=== PATIENT | female | born 1965 | race Caucasian/White ===

== ENCOUNTER → 2020-12-03 12:56 | Outpatient (CLI) | payer BC, SELFPAY ==
[2020-12-03 22:26] LABS: COVID19 - ORCAS (NP or Nasal) Negative (Negative)
== END ==
PROVIDERS: PCP Physician Assistant Medical; Visit Provider Physician Assistant Medical
DX: Z20.822 Contact with and (suspected) exposure to COVID-19 (principal)
CPT/HCPCS: U0003

== ENCOUNTER → 2022-03-18 08:46 | Outpatient (CLI) | payer BC, SELFPAY ==
[2022-03-18 20:41] LABS: Add Manual Diff / Slide Review NO; Basophils Absolute Auto 100 /uL (0-100); Basophils Percent Auto 1.4 % (0-2); Eosinophils Absolute Auto 200 /uL (0-450); Eosinophils Percent Auto 2.8 % (2-4); Hemoglobin 13.3 g/dL (12.0-16.0); Lymphocytes Absolute Auto 1500 /uL (1100-4500); Lymphocytes Percent Auto 25.9 % (25-40); Mean Corpuscular HGB Conc 33.1 % (30-36); Mean Corpuscular Hemoglobin 29.9 PG (26-34); Mean Corpuscular Volume 90.2 fL (80-100); Monocytes Absolute Auto 400 /uL (0-900); Monocytes Percent Auto 7.8 % (3-14); Neutrophils Absolute Auto 3500 /uL (1500-7000); Neutrophils Percent Auto 62.1 % (50-75); Platelet Count 287 X10^3/uL (150-400); Red Blood Cell Count 4.44 X10^6/uL (4.0-5.2); Red Cell Distribution Width 13.3 % (11.6-14.8); White Blood Cell Count 5.7 X10^3/uL (4.5-11.0)
[2022-03-18 21:55] LABS: Alanine Aminotransferase 19 IU/L (<35); Albumin 4.3 g/dL (3.5-5.0); Albumin Globulin Ratio 1.5 (1.0-2.8); Alkaline Phosphatase 79 U/L (38-126); Aspartate Aminotransferase 31 IU/L (14-36); BUN Creatinine Ratio 27.4 (6-22); Bilirubin Total 0.4 mg/dL (0.2-1.3); Blood Urea Nitrogen 20 mg/dL (7-17); Calcium 9.1 mg/dL (8.4-10.2); Carbon Dioxide 25 mmol/L (22-32); Chloride 103 mmol/L (98-107); Estimated Glomerular Filt Rate > 60 mL/min (>60); Globulin 2.9 g/dL (1.7-4.1); Glucose 91 mg/dL (70-100); HEMOLYSIS 18 (0-50); Potassium 4.7 mmol/L (3.4-5.1); Sodium 138 mmol/L (137-145); Total Protein 7.2 g/dL (6.3-8.2)
[2022-03-19 06:03] LABS: Free T4, Direct Thyroxine 1.16 ng/dL (0.78-2.19)
[2022-03-19 06:17] LABS: TSH w/ Reflex to FT4 0.08 uIU/mL (0.47-4.68)
== END ==
PROVIDERS: PCP Physician Assistant; Visit Provider Physician Assistant
DX: K06.8 Other specified disorders of gingiva and edentulous alveolar ridge (principal)
CPT/HCPCS: 80053; 84439; 84443; 85025

== ENCOUNTER → 2023-08-11 19:13 | Outpatient (CLI) | payer BC, SELFPAY ==
--- NOTE | 2023-08-11 19:30 | DI.MRI.S_ITS ---
PROCEDURE: MR ANGIO NECK W CON INDICATIONS: severe headaches TECHNIQUE: Axial and sagittal TruFISP through the neck. Coronal dynamic MRA after the administration of contrast in the arterial and venous phases, with rotating 3-dimensional maximum intensity projection (MIP) reformats constructed from subtraction images. COMPARISON: [facility], MR, MR ANGIO HEAD WO CON, 08/11/2023, 19:29. FINDINGS: Image quality: Excellent. Carotid system: Great vessels demonstrate a conventional anatomy as they arise from the aortic arch. The origins of the common carotid arteries appear normal. The calibers and courses of the common carotid arteries are likewise normal. The carotid bifurcations appear normal bilaterally. The internal carotid arteries are widely patent up to the [place] of [place]. Posterior circulation: The origins of the vertebral arteries are unremarkable. The more superior portions of the vertebral arteries demonstrate normal course and caliber. Vertebral arteries join to form a normal appearing basilar artery. Miscellaneous: Subclavian arteries are patent throughout. Pre-contrast images through the neck demonstrate no soft tissue abnormalities. IMPRESSION: No areas of hemodynamically significant stenosis, vascular occlusion or aneurysmal dilation within the neck vasculature. Any quantitative measurements of stenosis were performed using NASCET criteria. Dictated by: Joan Alberts M.D. on 08/11/2023 at 21:09 Approved by: Joan Alberts M.D. on 08/11/2023 at 21:09
--- NOTE | 2023-08-11 20:00 | DI.MRI.S_ITS ---
PROCEDURE: MR ANGIO HEAD WO CON INDICATIONS: severe headaches for 2 months TECHNIQUE: Noncontrast axial 3-D jjwt-pn-vxywys MR angiogram, with 3-dimensional maximum intensity projection (MIP) reformats of the internal carotid arteries and posterior circulation then performed. COMPARISON: [facility], MR, MR ANGIO NECK W CON, 08/11/2023, 19:48. FINDINGS: Image quality: Excellent. Anterior circulation: Intracranial internal carotid arteries demonstrate normal size and intraluminal flow signal. The flow within the paired anterior cerebral arteries is normal and symmetric. The flow within the middle cerebral arteries is normal and symmetric. The anterior communicating artery is seen. No stenoses, occlusions, or aneurysms. Posterior circulation: Left vertebral artery dominance. Visualized portions of the vertebral arteries demonstrate normal caliber, and join to form a normal appearing basilar artery. The flow within the posterior cerebral arteries is normal and symmetric. No stenoses, occlusions, or aneurysms. IMPRESSION: No areas of hemodynamically significant stenosis, vascular occlusion or aneurysmal dilation within the anterior circulation. No areas of hemodynamically significant stenosis, vascular occlusion or aneurysmal dilation within the posterior circulation. Dictated by: Joan Alberts M.D. on 08/11/2023 at 21:07 Approved by: Joan Alberts M.D. on 08/11/2023 at 21:08
== END ==
PROVIDERS: PCP Family Medicine; Referring Provider Family Medicine; Visit Provider Family Medicine
DX: G44.82 Headache associated with sexual activity
CPT/HCPCS: 70544; 70548

== ENCOUNTER 2024-09-12 15:15 | Emergency (ER) | payer BC, SELFPAY ==
[2024-09-12] VITALS (11 sets, daily range): BP systolic 116–133; BP diastolic 67–74; PULSE 62–89; RESP 16–18; O2SAT 98–100; BMI 22.8
--- NOTE | 2024-09-12 15:30 | DI.CT.S_ITS ---
PROCEDURE: CT ANGIO HEAD AND NECK INDICATIONS: sudden onset blurry vision/ r/o CVA 0730am TECHNIQUE: After the administration of intravenous contrast, 1 mm thick sections acquired from the aortic arch through the [place] of [place]. 3-dimensional nylfwps-xjfccytlk-bqmbmybgec (MIP) and/or volume rendering reformats were acquired of the central intracranial vasculature and neck separately. For radiation dose reduction, the following was used: automated exposure control, adjustment of mA and/or kV according to patient size. COMPARISON: [facility], , MR ANGIO HEAD WO CON, 08/11/2023, 19:29. FINDINGS: Image quality: Diagnostic. BRAIN: CSF spaces: Ventricles are normal in size and shape. Basal cisterns are patent. No extra-axial fluid collections. Brain: No significant abnormality of the brain can be seen. Skull and face: Calvarium and facial bones appear intact, without suspicious lesions. Orbits appear normal. Sinuses: Sinuses and mastoids are clear. HEAD CT ANGIOGRAPHY: Anterior circulation: Intracranial internal carotid arteries are normal in size and flow. The flow within the paired anterior cerebral arteries is normal and symmetric. The flow within the middle cerebral arteries is normal and symmetric. The anterior communicating artery is seen. No aneurysms are seen. Posterior circulation: Visualized portions of the vertebral arteries demonstrate normal caliber, and join to form a normal appearing basilar artery. Flow within the posterior cerebral arteries is normal and symmetric. No aneurysms are seen. NECK CT ANGIOGRAPHY: Carotid system: The great vessels demonstrate a conventional anatomy as they arise from the aortic arch. The origins of the common carotid arteries appear patent. The common carotid arteries demonstrate normal caliber and courses. The bifurcation regions are both widely patent. The internal carotid arteries demonstrate normal calibers and courses. Posterior circulation: The origins of the vertebral arteries both appear widely patent. The more superior extracranial portions of both vertebral arteries also demonstrate normal courses and calibers. They join to form a normal appearing basilar artery. Soft tissues: Visualized neck soft tissues demonstrate no suspicious abnormalities. Bones: No suspicious bony lesions. Visualized cervical spine appears normally aligned. IMPRESSION: No significant intracranial arterial abnormality is seen. No significant abnormality is seen within the arteries of the neck. Any quantitative measurements of stenosis were performed using NASCET criteria. Dictated by: Indra Medrano M.D. on 09/12/2024 at 16:21 Approved by: Indra Medrano M.D. on 09/12/2024 at 16:26
--- NOTE | 2024-09-12 15:30 | DI.CT.S_ITS ---
PROCEDURE: CT HEAD/BRAIN WO CON INDICATIONS: sudden onset blurry vision/ r/o CVA 0730am TECHNIQUE: Noncontrast 4.5 mm thick angled axial sections acquired from the foramen magnum to the vertex, with coronal and sagittal reformats. For radiation dose reduction, the following was used: automated exposure control, adjustment of mA and/or kV according to patient size. COMPARISON: None. FINDINGS: Image quality: Diagnostic. CSF spaces: Basal cisterns are patent. No extra-axial fluid collections. Ventricles are normal in size and shape. Brain: No midline shift. No intracranial masses or hemorrhage. Golden-white matter interface is normal. Skull and face: Calvarium and visualized facial bones are intact, without suspicious lesions. Sinuses: Visualized sinuses and mastoids are clear. IMPRESSION: No acute intracranial pathology. Dictated by: Indra Medrano M.D. on 09/12/2024 at 16:17 Approved by: Indra Medrano M.D. on 09/12/2024 at 16:18
--- NOTE | 2024-09-12 17:03 | EKG_ITS ---
[address] [address] Test Date: 2024-09-12 Pat Name: Reshma Francois Department: 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
[2024-09-12 17:12] LABS: INR 1.1 (0.9-1.3); Prothrombin Time 12.2 SECONDS (9.4-12.5)
[2024-09-12 17:15] LABS: PTT Partial Thromboplastin Tim 32 SECONDS (25.1-36.5)
[2024-09-12 17:16] LABS: Add Manual Diff / Slide Review NO; Basophils Absolute Auto 100 /uL (0-100); Basophils Percent Auto 1.1 % (0-2); Eosinophils Absolute Auto 200 /uL (0-450); Eosinophils Percent Auto 2.3 % (2-4); Hemoglobin 13.3 g/dL (12.0-16.0); Lymphocytes Absolute Auto 2000 /uL (1100-4500); Lymphocytes Percent Auto 22.6 % (25-40); Mean Corpuscular HGB Conc 33.3 % (30-36); Mean Corpuscular Hemoglobin 30.1 PG (26-34); Mean Corpuscular Volume 90.5 fL (80-100); Monocytes Absolute Auto 500 /uL (0-900); Monocytes Percent Auto 5.5 % (3-14); Neutrophils Absolute Auto 5900 /uL (1500-7000); Neutrophils Percent Auto 68.5 % (50-75); Platelet Count 322 X10^3/uL (150-400); Red Blood Cell Count 4.42 X10^6/uL (4.0-5.2); Red Cell Distribution Width 13.5 % (11.6-14.8); White Blood Cell Count 8.7 X10^3/uL (4.5-11.0)
[2024-09-12 17:17] LABS: Alanine Aminotransferase 22 IU/L (<35); Albumin 4.6 g/dL (3.5-5.0); Albumin Globulin Ratio 1.4 (1.0-2.8); Alkaline Phosphatase 55 U/L (38-126); Aspartate Aminotransferase 33 IU/L (14-36); BUN Creatinine Ratio 18.6 (6-22); Bilirubin Total 0.3 mg/dL (0.2-1.3); Blood Urea Nitrogen 16 mg/dL (7-17); Calcium 9.1 mg/dL (8.4-10.2); Carbon Dioxide 27 mmol/L (22-32); Chloride 104 mmol/L (98-107); Creatine Kinase 89 U/L (30-135); Estimated Glomerular Filt Rate > 60 mL/min (>60); Globulin 3.2 g/dL (1.7-4.1); Glucose 160 mg/dL (70-100); HEMOLYSIS < 15 (0-50); Potassium 3.6 mmol/L (3.4-5.1); Sodium 137 mmol/L (137-145); Total Protein 7.8 g/dL (6.3-8.2)
[2024-09-12 17:28] LABS: Troponin I < 0.012 ng/mL (0.01-0.034)
--- NOTE | 2024-09-12 18:39 | ED.NEUROSD ---
HPI - Neuro Symptoms/Deficit General Chief Complaint: Neuro Symptoms/Deficit Stated Complaint: blurry/double vision, poss stroke Time Seen by Provider: 09/12/24 17:01 History of Present Illness HPI Narrative: 59-year-old female with history of hypothyroidism presents by private vehicle from home for visual disturbance this morning. Patient states that this morning around 730am she went about her normal routine. She was on the phone with her when she states that her vision ?split vertically in two. She estimates that this lasted 7-10 minutes. Has been asymptomatic since resolution of symptoms On Anticoagulants: No Related Data Home Medications Medication Instructions Recorded Confirmed multivitamin 1 tab PO DAILY 06/11/21 11/03/23 levothyroxine 112 mcg tablet 112 mcg PO DAILY 11/19/22 09/12/24 levothyroxine 125 mcg tablet 125 mcg PO DAILY 11/19/22 09/12/24 Previous Rx's Medication Instructions Recorded estradiol-norethindrone acet 1 1 tab PO DAILY MAMMOGRAM due 08/06/24 mg-0.5 mg tablet 12/2023 on HRT. please schedule #84 tabs Allergies Allergy/AdvReac Type Severity Reaction Status Date / Time No Known Drug Allergies Allergy Verified 11/03/23 16:18 Review of Systems Hematologic/Lymphatic On Anticoagulants: No Patient History Medical History (Updated 09/12/24 @ 20:07 by Kae Bates MD) ASCUS of cervix with negative high risk HPV Screening for colon cancer Lipid screening Encounter for hepatitis C screening test for low risk patient Encounter for screening mammogram for malignant neoplasm of breast Health maintenance examination Social History Smoking Status: Never smoker Smoking Status: Never smoker Exam Initial Vital Signs Initial Vital Signs: Vital Signs Pulse Rate 84 09/12/24 15:20 Respiratory Rate 16 09/12/24 15:20 Blood Pressure 133/67 09/12/24 15:20 Pulse Oximetry 98 09/12/24 15:20 Oxygen Delivery Method Room Air 09/12/24 15:20 Const: Awake, alert, no acute distress, nontoxic appearing HEENT: PERRL, EOMI, normal facial symmetry Cardiac: regular rate, regular rhythm RESP: unlabored, clear bilaterally, no wheezing Skin: Warm, Dry, intact, no rashes Neuro: AO x3, CN II-XII grossly intact, moves all extremities Course Orders Ordered: ED Orders 09/12/24 17:03 EKG-12 Lead Stat 09/12/24 18:40 MR head/brain wo con Stat Vital Signs Vital signs: Vital Signs - 8 hr 09/12/24 17:15 09/12/24 17:30 09/12/24 18:00 Pulse Rate 63 62 64 Respiratory Rate 18 18 18 Blood Pressure 116/69 123/74 130/70 Pulse Oximetry 98 98 98 Oxygen Delivery Method 09/12/24 18:30 09/12/24 18:59 09/12/24 19:17 Pulse Rate 78 89 74 Respiratory Rate 18 18 Blood Pressure 126/74 Pulse Oximetry 99 98 99 Oxygen Delivery Method Room Air 09/12/24 19:17 09/12/24 19:19 Pulse Rate 72 Respiratory Rate 18 18 Blood Pressure 117/70 117/70 Pulse Oximetry 100 Oxygen Delivery Method Room Air MDM - Neuro Symptoms/Deficit Lab Data 09/12/24 15:40 09/12/24 15:40 Labs: Lab Results 09/12/24 Range/Units 15:40 WBC 8.7 (4.5-11.0) X10^3/uL RBC 4.42 (4.0-5.2) X10^6/uL Hgb 13.3 (12.0-16.0) g/dL Hct 40.0 (36-46) % MCV 90.5 (80-100) fL MCH 30.1 (26-34) PG MCHC 33.3 (30-36) % RDW 13.5 (11.6-14.8) % Plt Count 322 (150-400) X10^3/uL Neut % (Auto) 68.5 (50-75) % Lymph % (Auto) 22.6 L (25-40) % Andrews % (Auto) 5.5 (3-14) % Eos % (Auto) 2.3 (2-4) % Baso % (Auto) 1.1 (0-2) % Neut # (Auto) 5900 (4534-2317) /uL Lymph # (Auto) 2000 (7949-3624) /uL Andrews # (Auto) 500 (0-900) /uL Eos # (Auto) 200 (0-450) /uL Baso # (Auto) 100 (0-100) /uL PT 12.2 (9.4-12.5) SECONDS INR 1.1 (0.9-1.3) APTT 32 (25.1-36.5) SECONDS Sodium 137 (137-145) mmol/L Potassium 3.6 (3.4-5.1) mmol/L Chloride 104 (98-107) mmol/L Carbon Dioxide 27 (22-32) mmol/L BUN 16 (7-17) mg/dL Creatinine 0.86 (0.52-1.04) mg/dL Estimated GFR > 60 (>60) mL/min BUN/Creatinine Ratio 18.6 (6-22) Glucose 160 H (70-100) mg/dL Calcium 9.1 (8.4-10.2) mg/dL Total Bilirubin 0.3 (0.2-1.3) mg/dL AST 33 (14-36) IU/L ALT 22 (<35) IU/L Alkaline Phosphatase 55 (38-126) U/L Total Creatine Kinase 89 (30-135) U/L Troponin I < 0.012 (0.01-0.034) ng/mL Total Protein 7.8 (6.3-8.2) g/dL Albumin 4.6 (3.5-5.0) g/dL Globulin 3.2 (1.7-4.1) g/dL Albumin/Globulin Ratio 1.4 (1.0-2.8) Imaging Data CT scan - head: Radiologist's Impression: PROCEDURE: MR HEAD/BRAIN WO CON INDICATIONS: DOUBLE VISION X12 HRS AGO TECHNIQUE: Noncontrast axial T1 spin echo, axial T2 fast spin echo, sagittal and axial FLAIR, coronal T2 fast spin echo, axial gradient echo, axial diffusion and ADC through the brain. COMPARISON: [facility], CT, CT HEAD/BRAIN WO CON, 09/12/2024, 15:52. FINDINGS: Image quality: Diffusion images in the posterior fossa are degraded by artifact CSF spaces: Basal cisterns are patent. Lateral ventricles are symmetric. Volume: No significant volume loss Brain: There is no acute diffusion restriction or intracranial hematoma. No confluent area of parenchymal edema. Craniofacial structures: No significant paranasal sinus opacity. IMPRESSION: There is no acute infarct or hematoma identified. Posterior fossa not well evaluated on diffusion images due to artifact, no definite edema seen on T2 weighted images. Dictated by: Gibson March M.D. on 09/12/2024 at 19:43 Approved by: Gibson March M.D. on 09/12/2024 at 19:45 CTA - brain/neck: Radiologist's Impression: PROCEDURE: CT ANGIO HEAD AND NECK INDICATIONS: sudden onset blurry vision/ r/o CVA 0730am TECHNIQUE: After the administration of intravenous contrast, 1 mm thick sections acquired from the aortic arch through the [place] of [place]. 3-dimensional ivphjcy-nedfghevo-jjtzzmlikc (MIP) and/or volume rendering reformats were acquired of the central intracranial vasculature and neck separately. For radiation dose reduction, the following was used: automated exposure control, adjustment of mA and/or kV according to patient size. COMPARISON: [facility], MR, MR ANGIO HEAD WO CON, 08/11/2023, 19:29. FINDINGS: Image quality: Diagnostic. BRAIN: CSF spaces: Ventricles are normal in size and shape. Basal cisterns are patent. No extra-axial fluid collections. Brain: No significant abnormality of the brain can be seen. Skull and face: Calvarium and facial bones appear intact, without suspicious lesions. Orbits appear normal. Sinuses: Sinuses and mastoids are clear. HEAD CT ANGIOGRAPHY: Anterior circulation: Intracranial internal carotid arteries are normal in size and flow. The flow within the paired anterior cerebral arteries is normal and symmetric. The flow within the middle cerebral arteries is normal and symmetric. The anterior communicating artery is seen. No aneurysms are seen. Posterior circulation: Visualized portions of the vertebral arteries demonstrate normal caliber, and join to form a normal appearing basilar artery. Flow within the posterior cerebral arteries is normal and symmetric. No aneurysms are seen. NECK CT ANGIOGRAPHY: Carotid system: The great vessels demonstrate a conventional anatomy as they arise from the aortic arch. The origins of the common carotid arteries appear patent. The common carotid arteries demonstrate normal caliber and courses. The bifurcation regions are both widely patent. The internal carotid arteries demonstrate normal calibers and courses. Posterior circulation: The origins of the vertebral arteries both appear widely patent. The more superior extracranial portions of both vertebral arteries also demonstrate normal courses and calibers. They join to form a normal appearing basilar artery. Soft tissues: Visualized neck soft tissues demonstrate no suspicious abnormalities. Bones: No suspicious bony lesions. Visualized cervical spine appears normally aligned. IMPRESSION: No significant intracranial arterial abnormality is seen. No significant abnormality is seen within the arteries of the neck. Any quantitative measurements of stenosis were performed using NASCET criteria. Dictated by: Inrda Medrano M.D. on 09/12/2024 at 16:21 Approved by: Indra Medrano M.D. on 09/12/2024 at 16:26 [facility] Narrative Medical decision making narrative: Well-appearing patient with brief episode of split vision today. Vision currently at baseline per patient. No focal deficit on exam. Laboratory work, CT brain, CT angio head and neck, MRI brain negative for acute findings. Patient remained asymptomatic throughout entire stay in the emergency department. Uncertain etiology of patient's symptoms. Recommended follow up with eye doctor for dilated dedicated eye exam Discharge Plan Departure Patient Disposition: Home Clinical Impression: Double vision Instructions: DI for Visual Field Disturbances Activity Restrictions/Additional Instructions: Your exam today was normal. Your CT scans and MRI today did not show any cause of why you had a double vision event. There are no signs of blood vessel abnormalities or stroke on your MRI. I do not know the cause of your symptoms today. I recommend following up with an eye doctor for a dedicated dilated eye exam to help get to the bottom of why this may have happened. Follow up with your primary care doctor. Prescriptions: No Action estradiol-norethindrone acet 1-0.5 mg tablet 1 tab PO DAILY Qty: 84 0RF Rx Instructions: due for Mammo in 2023. contact office about the order. multivitamin Tablet 1 tab PO DAILY levothyroxine 112 mcg tablet 112 mcg PO DAILY Rx Instructions: TAKE 112 MCG BY MOUTH. ALTERNATE WITH 125 MCG. Takes medication for two days in a row. levothyroxine 125 mcg tablet 125 mcg PO DAILY Rx Instructions: TAKE 125 MCG BY MOUTH. ALTERNATE WITH 112 MCG. Takes medication one day. Referrals: Pascale Dwyer MD [Primary Care Provider] - Stand Alone Forms: Patient Portal/API/Survey
== END 2024-09-12 20:11 | disposition home or self-care (01) ==
PROVIDERS: Emergency Medicine; Emergency Provider Emergency Medicine; PCP Family Medicine
DX: H53.2 Diplopia (principal)
CPT/HCPCS: 36415; 70450; 70496; 70498; 70551; 80053; 82550; 84484; 85025; 85610; 85730; 93005; 99284

== ENCOUNTER → 2024-10-04 12:14 | Outpatient (CLI) | payer BC, SELFPAY | PROVIDERS: PCP Family Medicine; Visit Provider Nurse Practitioner Family | DX: J02.9 Acute pharyngitis, unspecified (principal) | CPT/HCPCS: 87070 ==

== ENCOUNTER → 2024-10-04 16:39 | Outpatient (CLI) | payer BC, SELFPAY ==
--- NOTE | 2024-10-04 16:40 | DI.RAD.S_ITS ---
PROCEDURE: XR CHEST 2V INDICATIONS: Cough TECHNIQUE: 2 views of the chest were acquired. COMPARISON: None. FINDINGS: Heart, mediastinum and pulmonary vascular: Heart is normal in size and configuration. Mediastinum is unremarkable. Pulmonary vascular is normal. Lungs: Clear Pleural spaces: Normal-no effusions or pneumothorax. Bones and soft tissues: Moderate degenerative disc disease seen throughout the upper midthoracic spine IMPRESSION: No cardiopulmonary disease. Dictated by: Clint Puente M.D. on 10/05/2024 at 10:36 Approved by: Clint Puente M.D. on 10/05/2024 at 10:37
== END ==
PROVIDERS: PCP Family Medicine; Referring Provider Nurse Practitioner Family; Visit Provider Nurse Practitioner Family
DX: M51.34 Other intervertebral disc degeneration, thoracic region (principal); R05.9 Cough, unspecified; J02.9 Acute pharyngitis, unspecified
CPT/HCPCS: 71046; 87070; 87147

== ENCOUNTER → 2024-10-17 15:37 | Outpatient (CLI) | payer BC, SELFPAY ==
--- NOTE | 2024-10-17 15:39 | DI.MG.S_ITS ---
BILATERAL DIGITAL SCREENING MAMMOGRAM 3D/2D WITH CAD: 10/17/2024 CLINICAL: Routine screening. Comparison is made to exams dated: 08/26/2020 mammogram and 12/23/2022 mammogram - out side. The breasts are heterogeneously dense, which may obscure small masses (category c / 51-75% glandular tissue). Current study was also evaluated with a Computer Aided Detection (CAD) system. No significant masses, calcifications, or other findings are seen in either breast. There has been no significant interval change. IMPRESSION: NEGATIVE There is no mammographic evidence of malignancy. A 1 year screening mammogram is recommended. Based on the Tyrer Cuzick model (a risk assessment model) the patient's lifetime risk is 13.4% and her 10 year risk is 4.8%. According to the ACR, ACS, and NCCN guidelines, an annual breast MRI exam along with mammogram is recommended if the patient's lifetime risk is 20% or greater. This exam was interpreted at Station ID: [id number]. NOTE: For mammograms, a report in lay terms will be sent to the patient. Approximately 15% of breast malignancies will not be visualized mammographically. In the management of a palpable breast mass, a negative mammogram must not discourage biopsy of a clinically suspicious lesion. Electronically Signed By: Saul ortiz/reji:10/18/2024 13:48:23 letter sent: Normal Exam ACR BI-RADS Category 1: Negative
[2024-10-23 14:12] LABS: ANA Screen, IFA Negative (.)
[2024-10-23 17:45] LABS: Protein C-Functional 115 % (73-180); Protein S-Functional 98 % (63-140)
[2024-10-23 19:07] LABS: Dilute Russell Viper Venom 45.4 sec (0.0-47.0); Lupus Reflex Interpretation Comment: (.)
== END ==
PROVIDERS: PCP Family Medicine; Referring Provider Family Medicine; Visit Provider Family Medicine
DX: Z12.31 Encounter for screening mammogram for malignant neoplasm of breast (principal); R92.333 Mammographic heterogeneous density, bilateral breasts; G45.9 Transient cerebral ischemic attack, unspecified; Z79.890 Hormone replacement therapy; Z85.850 Personal history of malignant neoplasm of thyroid
CPT/HCPCS: 36415; 77063; 77067; 85300; 85303; 85306; 85598; 85613; 86038

== ENCOUNTER → 2024-11-13 13:51 | Outpatient (CLI) | payer BC, SELFPAY ==
--- NOTE | 2024-11-13 13:52 | DI.ECHO.S_ITS ---
[facility] : : [address] : : [place] : : [id number] : : Phone: [phone] Echocardiogram Report + + :Name: KARINA BEEBE Study Date: 11/13/2024 Height: 68 in : :[facility] ReadingLocation: Weight: 150 lb : : Gender: Female BSA: 1.8 m2 : :: 1965 Age: 59 yrs BP: 123/67 mmHg: :Reason For Study: TIA : :Ordering Physician: BING, : :AUREA Performed By: Sera Costello : :Referring: AUREA SMART : + + Interpretation Summary Normal sinus rhythm. Normal LV size and wall thickness. Normal wall motion and LV systolic function. Ejection fraction 60-65%. Stage I diastolic dysfunction. Normal chamber sizes. No significant valvular abnormalities. No evidence of PFO based on bubble study. No prior study available for comparison. Procedure: A two-dimensional transthoracic echocardiogram with color flow and Doppler was performed. The study quality was technically adequate. There is no prior echocardiogram noted for this patient. The patient was in sinus rhythm with heart rates between 70-80 bpm during the exam. Left Ventricle: The left ventricle is normal in size and wall thickness. The ejection fraction is estimated to be 60-65%. Right Ventricle: The right ventricle is normal in size and function. Atria: The left atrial size is normal. Right atrial size is normal. The interatrial septum is thin and hypermobile. No evidence of right-left shunt. Mitral Valve: The mitral valve leaflets appear to open well. There is no mitral annular calcification. There is trace mitral regurgitation. Aortic Valve: The aortic valve is trileaflet. The aortic valve opens well. There is no aortic valve stenosis. No aortic regurgitation is present. Tricuspid Valve: The tricuspid valve leaflets are thin and pliable. There is trace tricuspid regurgitation. Pulmonary artery pressures cannot be estimated because of the lack of a measurable TR jet velocity but the IVC suggests a CVP of around 3 mmHg. Pulmonic Valve: The pulmonic valve leaflets are thin and pliable; valve motion is normal. There is trace pulmonic regurgitation. Great Vessels: The aortic root is normal size. The dimensions of the ascending aorta are normal. The IVC is of normal diameter and collapses greater than 50% with a sniff. This suggests a low right atrial pressure of 3 mm Hg. Pericardium/ Pleura There is no pericardial effusion. There is no pleural effusion. MMode/2D Measurements & Calculations LVIDd: 4.4 cm LVOT diam: 2.0 cm LVIDs: 3.0 cm Ao root diam: 2.8 cm FS: 31.1 % asc Aorta Diam: 2.6 cm EPSS: 0.31 cm Ao Arch Diam (Prox Trans): 2.8 cm IVSd: 0.76 cm LVPWd: 0.65 cm LV parker. diameter/BSA (cm/m^2): 2.4 LV sys. diameter/BSA (cm/m^2): 1.7 LA A2 area: 19.4 cm2 RA long axis: 4.7 cm LA A4 area: 17.5 cm2 RA area: 12.5 cm2 LA length (vol): 5.0 cm RA vol: 28.4 ml LA vol: 57.9 ml RA : 15.7 ml/m2 LA vol index: 32.0 ml/m2 IVC diam: 2.0 cm RVD1 (basal): 3.9 cm RVD2 (mid): 3.2 cm TAPSE: 2.3 cm Doppler Measurements & Calculations Ao V2 max: 134.1 cm/sec LVOT Max [place]: 100.7 cm/sec Ao V2 mean: 92.6 cm/sec LV V1 max P.1 mmHg Ao max P.2 mmHg LV V1 VTI: 21.2 cm Ao mean P.8 mmHg RAJAN(I,D): 2.4 cm2 Ao V2 VTI: 27.2 cm RAJAN(V,D): 2.4 cm2 sev ratio: 0.78 RAJAN indexed to BSA (cm^2/m^2): 1.4 MV E max tapan: 76.6 cm/sec PA V2 max: 90.3 cm/sec MV A max tapan: 97.1 cm/sec PA V2 mean: 64.7 cm/sec MV E/A: 0.79 PA mean P.8 mmHg Med Peak E' [place]: 12.0 cm/sec PA pr(Accel): 23.8 mmHg E/E' med: 6.4 Lat Peak E' [place]: 14.2 cm/sec E/E' lat: 5.4 E/e' average: 5.9 MV dec time: 0.17 sec SV(LVOT): 66.5 ml Electronically signed by: Rachel Colunga M.D. on Reading Physician:11/16/2024 08:52 AM
== END ==
PROVIDERS: PCP Family Medicine; Referring Provider Family Medicine; Visit Provider Family Medicine
DX: G45.9 Transient cerebral ischemic attack, unspecified (principal)
CPT/HCPCS: 93306

== ENCOUNTER → 2025-03-26 14:25 | Outpatient (CLI) | payer BC, SELFPAY ==
[2025-03-26 19:39] LABS: Cholesterol 245 mg/dL (140-199); HDL Cholesterol 84 mg/dL (40-60); Triglycerides 181 mg/dL (35-150)
[2025-03-28 04:08] LABS: CRP, High Sensitivity 0.53 mg/L (0.00-3.00)
== END ==
PROVIDERS: PCP Family Medicine; Visit Provider Family Medicine
DX: R07.9 Chest pain, unspecified (principal); Z13.6 Encounter for screening for cardiovascular disorders; I51.89 Other ill-defined heart diseases
CPT/HCPCS: 80061; 86140